=== PATIENT | female | born 1990 ===

== ENCOUNTER → 2018-08-15 21:02 | Outpatient (ROUT) | payer OTHER, SELFPAY ==
[2018-08-18 14:13] LABS: B pertussis IGA 5 IU/mL; B pertussis IgG 2 IU/mL
[2018-08-19 15:09] LABS: RPR Screen Nonreactive (Nonreactive)
== END ==
PROVIDERS: Visit Provider Family Medicine
DX: Z11.1 Encounter for screening for respiratory tuberculosis (principal); Z11.3 Encounter for screening for infections with a predominantly sexual mode of transmission
CPT/HCPCS: 36415; 86480; 86592; 86615; 86648; 86735; 86762; 86765; 86774; 86787; 87591